=== PATIENT | male | born 1990 ===

== ENCOUNTER 2017-11-22 11:46 | Inpatient (IN) | payer OTHER ==
--- NOTE | 2017-11-22 12:44 | ED PDOC ---
HPI: Abdomen Time Seen by Provider: 11/22/17 12:43 Chief Complaint (Nursing): Abdominal Pain Chief Complaint (Provider): abd pain History Per: Patient Additional Complaint(s): 27-year-old male with no past medical history presents to emergency department with right lower quadrant pain, nausea, vomiting and diarrhea that started 2 days ago. Patient was seen by primary doctor and referred to ED for further evaluation. He rates the abdominal pain as an 8 out of 10 and states that it started in periumbilical region and has now localized to right lower quadrant. Patient is unable to keep down any liquids or solids. PMD: Dr. Knowles Past Medical History Reviewed: Historical Data, Nursing Documentation, Vital Signs Vital Signs: Last Vital Signs Temp 98.0 F 11/22/17 17:13 Pulse 57 L 11/22/17 17:13 Resp 16 11/22/17 17:13 BP 144/85 11/22/17 17:13 Pulse Ox 98 11/22/17 12:44 - Medical History PMH: No Chronic Diseases - Surgical History Surgical History: No Surg Hx - Family History Family History: States: No Known Family Hx - Living Arrangements Living Arrangements: With Family - Social History Current smoker - smoking cessation education provided: No Alcohol: None Drugs: Denies - Allergies Allergies/Adverse Reactions: Allergies Allergy/AdvReac Type Severity Reaction Status Date / Time No Known Allergies Allergy Verified 11/22/17 12:22 Review of Systems ROS Statement: Except As Marked, All Systems Reviewed And Found Negative Constitutional: Negative for: Fever, Chills Cardiovascular: Negative for: Chest Pain Respiratory: Negative for: Cough Gastrointestinal: Positive for: Nausea, Vomiting, Abdominal Pain, Diarrhea. Negative for: Constipation, Melena, Hematochezia, Hematemesis, Rectal Pain Physical Exam - Reviewed Nursing Documentation Reviewed: Yes Vital Signs Reviewed: Yes - Physical Exam Appears: Positive for: Well, Non-toxic, No Acute Distress Skin: Negative for: Rash Eye Exam: Positive for: Normal appearance Cardiovascular/Chest: Positive for: Regular Rate, Rhythm Respiratory: Positive for: Normal Breath Sounds. Negative for: Respiratory Distress Gastrointestinal/Abdominal: Positive for: Tenderness (Moderate tenderness right lower quadrant with positive guarding and positive rebound) Back: Negative for: L CVA Tenderness, R CVA Tenderness Extremity: Positive for: Normal ROM Neurologic/Psych: Positive for: Alert, Oriented - Laboratory Results Result Diagrams: 11/22/17 13:50 11/22/17 13:50 Urine dip results: Negative for: Leukocyte Esterase, Blood, Nitrate, Ketones, Glucose, Bilirubin, Protein - ECG O2 Sat by Pulse Oximetry: 98 Pulse Ox Interpretation: Normal - Other Rad CT abd and pelvis with IV contrast X-Ray: Read By Radiologist X-Ray Interpretation: see below Medical Decision Making Medical Decision Makin27 year old with abd pain Plan: CBC CMP Blood cultures CT abd and pelvis with IV contrast IVF IV reglan IV toradol CT: FINDINGS: LOWER THORAX: Unremarkable. LIVER: Unremarkable. No gross lesion or ductal dilatation. GALLBLADDER AND BILE DUCTS: Unremarkable. PANCREAS: Unremarkable. No gross lesion or ductal dilatation. SPLEEN: Unremarkable. ADRENALS: Unremarkable. No mass. KIDNEYS AND URETERS: Unremarkable. No hydronephrosis. No solid mass. VASCULATURE: Unremarkable. No aortic aneurysm. BOWEL: Unremarkable. No obstruction. No gross mural thickening. APPENDIX: There is a lengthy dilated appendix with mild mural thickening and limited periappendiceal reaction with a probable appendecolith at the tip in the right pelvis inferiorly. A 2nd larger appendecolith is felt to be present at its proximal segment near the cecum likely forming an obstruction. The pattern is compatible with appendicitis without CT sign of rupture at this time. PERITONEUM: Unremarkable. No free fluid. No free air. LYMPH NODES: Unremarkable. No enlarged lymph nodes. BLADDER: Distended but otherwise unremarkable appearing. REPRODUCTIVE: Unremarkable. BONES: No acute fracture. OTHER FINDINGS: None. IMPRESSION: Findings compatible with unruptured appendicitis. Further clinical correlation is recommended. PMD is Dr. Knowles, will admit patient and states to have surgery neighborhood conservation officer see patient. Case d/w surgical pathologist, Dr. Rodgers who discussed case further with surgery neighborhood conservation officer. Patient will be taken to OR this afternoon. IV zosyn ordered. Patient is aware of and agrees with plan. Disposition - Clinical Impression Clinical Impression: Appendicitis - Patient ED Disposition Is Patient to be Admitted: Yes - Disposition Disposition Time: 17:35 Condition: FAIR Forms: [employer] (Hungarian) - Pt Status Changed To: Hospital Disposition Of: Inpatient - Admit Certification Admit to Inpatient:: After my assessment, the patient will require hospitalization for at least two midnights. This is because of the severity of symptoms shown, intensity of services needed, and/or the medical risk in this patient being treated as an outpatient. - POA Present On Arrival: None Results - Lab Results Lab Results: 11/22/17 11/22/17 13:50 13:50 WBC 16.5 H RBC 5.68 Hgb 17.5 Hct 51.4 H MCV 90.4 MCH 30.8 MCHC 34.1 RDW 13.0 Plt Count 231 MPV 10.0 Neut % (Auto) 88.1 H Lymph % (Auto) 5.2 L [place] % (Auto) 6.5 Eos % (Auto) 0.0 Baso % (Auto) 0.2 Neut # (Auto) 14.5 H Lymph # (Auto) 0.9 L [place] # (Auto) 1.1 H Eos # (Auto) 0.0 Baso # (Auto) 0.0 Neutrophils % (Manual) 89 H Lymphocytes % (Manual) 5 L Monocytes % (Manual) 6 Platelet Estimate Normal RBC Morphology Normal Sodium 138 Potassium 4.2 Chloride 97 L Carbon Dioxide 25 Anion Gap 20 BUN 15 Creatinine 1.0 Est GFR ( Amer) > 60 Est GFR (Non-Af Amer) > 60 Random Glucose 140 H Calcium 9.5 Total Bilirubin 2.4 H AST 34 ALT 47 Alkaline Phosphatase 75 Total Protein 8.6 H Albumin 4.9 Globulin 3.7 Albumin/Globulin Ratio 1.3 Lipase 56
[2017-11-22] MEDS ORDERED: Sodium Chloride 0.9% 1,000 ML IV STA (12:53)
[2017-11-22 13:59] LABS: BASO % 0.2 % (0.0-2.0); HEMOGLOBIN 17.5 g/dL (12.0-18.0); LYMPH # 0.9 K/uL (1.0-4.3); LYMPH % 5.2 % (20.0-40.0); MEAN CELL VOLUME 90.4 fl (80.0-94.0); MEAN CORPUSCULAR HEMOGLOBIN 30.8 pg (27.0-31.0); MEAN CORPUSCULAR HGB CONC 34.1 g/dL (33.0-37.0); MONO # 1.1 K/uL (0.0-0.8); MONO % 6.5 % (0.0-10.0); NEUT # 14.5 K/uL (1.8-7.0); NEUT % 88.1 % (50.0-75.0); PLATELET COUNT 231 K/uL (130-400); RBC 5.68 Mil/uL (4.40-5.90); WHITE BLOOD COUNT 16.5 K/uL (4.8-10.8)
[2017-11-22 14:10] LABS: ALB/GLOB RATIO 1.3 (1.0-2.1); ALBUMIN 4.9 g/dL (3.5-5.0); ALT/SGPT 47 U/L (21-72); AST/SGOT 34 U/L (17-59); BLOOD UREA NITROGEN 15 mg/dl (9-20); CALCIUM 9.5 mg/dL (8.4-10.2); GFR AFRICAN-AMERICAN > 60; GFR NON-AFRICAN AMERICAN > 60; LIPASE 56 U/L (23-300)
[2017-11-22] MEDS ORDERED: Lactated Ringer's 1,000 ML IV ONE ×3 (14:20→19:10)
[2017-11-22] MEDS ORDERED: Sodium Chloride 0.9% 100 ML ONE (14:37)
[2017-11-22] MEDS ORDERED: Iohexol 300 100 ML IJ ONE (14:37)
[2017-11-22 15:26] LABS: LYMPHOCYTE 5 % (20-50); MONOCYTE 6 % (0-10); NEUTROPHIL 89 % (42-75); PLATELET ESTIMATE NORMAL (NORMAL); TOTAL CELLS COUNTED 100
--- NOTE | 2017-11-22 15:43 | CT ---
PROCEDURE: CT Abdomen and Pelvis with contrast HISTORY: diffuse abd pain COMPARISON: None. TECHNIQUE: Contrast dose: Omnipaque 300, 95 cc Radiation dose: Total exam DLP = 444.72 mGy-cm. This CT exam was performed using one or more of the following dose reduction techniques: Automated exposure control, adjustment of the mA and/or kV according to patient size, and/or use of iterative reconstruction technique. FINDINGS: LOWER THORAX: Unremarkable. LIVER: Unremarkable. No gross lesion or ductal dilatation. GALLBLADDER AND BILE DUCTS: Unremarkable. PANCREAS: Unremarkable. No gross lesion or ductal dilatation. SPLEEN: Unremarkable. ADRENALS: Unremarkable. No mass. KIDNEYS AND URETERS: Unremarkable. No hydronephrosis. No solid mass. VASCULATURE: Unremarkable. No aortic aneurysm. BOWEL: Unremarkable. No obstruction. No gross mural thickening. APPENDIX: There is a lengthy dilated appendix with mild mural thickening and limited periappendiceal reaction with a probable appendecolith at the tip in the right pelvis inferiorly. A 2nd larger appendecolith is felt to be present at its proximal segment near the cecum likely forming an obstruction. The pattern is compatible with appendicitis without CT sign of rupture at this time. PERITONEUM: Unremarkable. No free fluid. No free air. LYMPH NODES: Unremarkable. No enlarged lymph nodes. BLADDER: Distended but otherwise unremarkable appearing. REPRODUCTIVE: Unremarkable. BONES: No acute fracture. OTHER FINDINGS: None. IMPRESSION: Findings compatible with unruptured appendicitis. Further clinical correlation is recommended. Findings discussed with JAMES Fernandez with written down and read back verification 11/22/2017 3:37 p.m..
[2017-11-22] MEDS ORDERED: Piperacillin/Tazobact 3.375 gm Inj IVPB STA (15:50)
[2017-11-22] MEDS ORDERED: Piperacillin/Tazobact 3.375 gm Inj IVPB ONE (16:31)
[2017-11-22] MEDS: Lactated Ringer's 1,000 ML IV SCH ×2 (16:38→21:49)
[2017-11-22] MEDS ORDERED: Propofol 10 mg/ml Inj (20 ML) ONE ×3 (17:55→19:38)
--- NOTE | 2017-11-22 17:55 | CP.PCM.HP ---
<Angel Grant - Last Filed: 11/22/17 17:51> History of Present Illness - History of Present Illness History of Present Illness: General Surgery H&P CC: abdominal pain HPI: 27M presented to ED with <24hrs abdominal pain that began around 3pm yesterday. He had never had this pain before. Reports it as a sharp pain that is diffuse, but more painful in the lower abdomen. +N/V/D, cold sweats. Denies Dysuria, hematuria, hematochezia, and hematemesis. PMH: denies PSH: Skull plating, Finger surgery SH: Occasional EtOH, No tobacco or drug use. FH: Noncontributory All: NKDA Meds: Denies Present on Admission - Present on Admission Any Indicators Present on Admission: No Review of Systems - Review of Systems All systems: reviewed and no additional remarkable complaints except (as per HPI ) Past Patient History - Past Medical History & Family History Past Medical History?: No - Past Social History Alcohol: None Drugs: Denies - CARDIAC Hx Cardiac Disorders: No - PULMONARY Hx Respiratory Disorders: No - NEUROLOGICAL Hx Neurological Disorder: No - ENDOCRINE/METABOLIC Hx Endocrine Disorders: No - HEMATOLOGICAL/ONCOLOGICAL Hx Blood Disorders: No - INTEGUMENTARY Hx Dermatological Problems: No - MUSCULOSKELETAL/RHEUMATOLOGICAL Hx Musculoskeletal Disorders: No - GASTROINTESTINAL Hx Gastrointestinal Disorders: No - GENITOURINARY/GYNECOLOGICAL Hx Genitourinary Disorders: No - PSYCHIATRIC Hx Psychophysiologic Disorder: No - SURGICAL HISTORY Hx Surgeries: No Meds Allergies/Adverse Reactions: Allergies Allergy/AdvReac Type Severity Reaction Status Date / Time No Known Allergies Allergy Verified 11/22/17 12:22 Physical Exam - Constitutional Appears: Non-toxic, No Acute Distress - Head Exam Head Exam: ATRAUMATIC, NORMOCEPHALIC - Eye Exam Eye Exam: EOMI, PERRL - ENT Exam ENT Exam: Mucous Membranes Dry Additional comments: trachea midline - Neck Exam Neck exam: Positive for: Full Rom - Respiratory Exam Respiratory Exam: NORMAL BREATHING PATTERN. absent: Respiratory Distress - Cardiovascular Exam Cardiovascular Exam: RRR, +S1, +S2 - GI/Abdominal Exam GI & Abdominal Exam: Guarding (mild), Hernia (umbilical), Soft, Tenderness ( diffusely, but worst suprapubically). absent: Distended, Firm, Rebound, Rigid - Rectal Exam Rectal Exam: Deferred - Exam Additional comments: no inguinal hernias - Extremities Exam Extremities exam: Positive for: pedal pulses present. Negative for: calf tenderness, pedal edema - Back Exam Back exam: absent: CVA tenderness (L), CVA tenderness (R) - Neurological Exam Neurological exam: Alert, Oriented x3 - Psychiatric Exam Psychiatric exam: Normal Affect, Normal Mood - Skin Skin Exam: Dry, Warm Results - Vital Signs Recent Vital Signs: Last Vital Signs Temp 98.0 F 11/22/17 17:13 Pulse 57 L 11/22/17 17:13 Resp 16 11/22/17 17:13 BP 144/85 11/22/17 17:13 Pulse Ox 98 11/22/17 17:35 - Labs Result Diagrams: 11/22/17 13:50 11/22/17 13:50 Labs: Laboratory Results - last 24 hr 11/22/17 11/22/17 13:50 13:50 WBC 16.5 H RBC 5.68 Hgb 17.5 Hct 51.4 H MCV 90.4 MCH 30.8 MCHC 34.1 RDW 13.0 Plt Count 231 MPV 10.0 Neut % (Auto) 88.1 H Lymph % (Auto) 5.2 L [place] % (Auto) 6.5 Eos % (Auto) 0.0 Baso % (Auto) 0.2 Neut # (Auto) 14.5 H Lymph # (Auto) 0.9 L [place] # (Auto) 1.1 H Eos # (Auto) 0.0 Baso # (Auto) 0.0 Neutrophils % (Manual) 89 H Lymphocytes % (Manual) 5 L Monocytes % (Manual) 6 Platelet Estimate Normal RBC Morphology Normal Sodium 138 Potassium 4.2 Chloride 97 L Carbon Dioxide 25 Anion Gap 20 BUN 15 Creatinine 1.0 Est GFR ( Amer) > 60 Est GFR (Non-Af Amer) > 60 Random Glucose 140 H Calcium 9.5 Total Bilirubin 2.4 H AST 34 ALT 47 Alkaline Phosphatase 75 Total Protein 8.6 H Albumin 4.9 Globulin 3.7 Albumin/Globulin Ratio 1.3 Lipase 56 - Imaging and Cardiology CT scan - abdomen Status: Image reviewed by me, Report reviewed by me Assessment & Plan - Assessment and Plan (Free Text) Assessment: 27M with acute appendicitis with appendicolith Plan: NPO IVF Zosyn OR tonight for lap appendectomy Analgesia antiemetic Anti pyretic D/W Dr. Christiano Grant PGY4 <Carlin Alvarado - Last Filed: 11/22/17 18:12> Results - Vital Signs Recent Vital Signs: Last Vital Signs Temp 98.0 F 11/22/17 17:13 Pulse 57 L 11/22/17 17:13 Resp 16 11/22/17 17:13 BP 144/85 11/22/17 17:13 Pulse Ox 98 11/22/17 17:35 - Labs Result Diagrams: 11/22/17 13:50 11/22/17 13:50 Labs: Laboratory Results - last 24 hr 11/22/17 11/22/17 13:50 13:50 WBC 16.5 H RBC 5.68 Hgb 17.5 Hct 51.4 H MCV 90.4 MCH 30.8 MCHC 34.1 RDW 13.0 Plt Count 231 MPV 10.0 Neut % (Auto) 88.1 H Lymph % (Auto) 5.2 L [place] % (Auto) 6.5 Eos % (Auto) 0.0 Baso % (Auto) 0.2 Neut # (Auto) 14.5 H Lymph # (Auto) 0.9 L [place] # (Auto) 1.1 H Eos # (Auto) 0.0 Baso # (Auto) 0.0 Neutrophils % (Manual) 89 H Lymphocytes % (Manual) 5 L Monocytes % (Manual) 6 Platelet Estimate Normal RBC Morphology Normal Sodium 138 Potassium 4.2 Chloride 97 L Carbon Dioxide 25 Anion Gap 20 BUN 15 Creatinine 1.0 Est GFR ( Amer) > 60 Est GFR (Non-Af Amer) > 60 Random Glucose 140 H Calcium 9.5 Total Bilirubin 2.4 H AST 34 ALT 47 Alkaline Phosphatase 75 Total Protein 8.6 H Albumin 4.9 Globulin 3.7 Albumin/Globulin Ratio 1.3 Lipase 56 Assessment & Plan - Assessment and Plan (Free Text) Plan: I Personally saw and examined the patient at bedside with the resident and agree with the above assessment and plan. 27 male with about 24 hours lower abdominal pain, nausea/vomiting, and diarrhea. No previous abdominal surgery or relevant medical history. I personally reviewed the images and report from CT AP performed early - large, inflamed and dilated appendix with accompanying appendicolith. No evidence of perforation/abscess. Plan for laparoscopic appendectomy under GETA. Will admit to observation post-operatively. Consent was obtained at the bedside with patient.
[2017-11-22] MEDS ORDERED: Rocuronium 10 mg/ml (5 ml) ONE ×2 (17:56→19:19)
[2017-11-22] MEDS ORDERED: Midazolam 2 MG/2 ML VIAL ONE (17:56)
[2017-11-22] MEDS ORDERED: Succinylcholine 200 mg/10 ml Inj IV ONE (17:56)
[2017-11-22] MEDS ORDERED: Lidocaine 2% Inj (20ml) ONE (18:08)
[2017-11-22] MEDS ORDERED: Bupivacaine 0.5% Inj(30mL) ONE (18:08)
[2017-11-22] MEDS ORDERED: Bupivacaine 0.5% 50 ML IJ ONE (18:42)
[2017-11-22] MEDS ORDERED: Dexamethasone 4 mg/1 ml ONE (18:50)
[2017-11-22] MEDS ORDERED: Desflurane Inhalation Anesthetic Liq (240 ml) ONE (18:58)
[2017-11-22] MEDS ORDERED: Neostigmine 1:1000 (1 mg/ml) Inj ONE (19:03)
--- NOTE | 2017-11-22 20:23 | PCM.SURG1 ---
Surgeon's Initial Post Op Note - Surgeon's Notes Surgeon: Christiano Legal Records Clerk: PGY4 Type of Anesthesia: General Endo Pre-Operative Diagnosis: Acute Appendicitis Operative Findings: Inflamed, non-perforated appendix Post-Operative Diagnosis: Acute Appendicitis Operation Performed: Laparoscopic appendectomy Specimen/Specimens Removed: appendix Estimated Blood Loss: EBL {In ML}: 10 Blood Products Given: N/A Drains Used: No Drains Post-Op Condition: Good Date of Surgery/Procedure: 11/22/17 Time of Surgery/Procedure: 18:30
[2017-11-22] MEDS: Piperacillin/Tazobact 3.375 GM in Sodium Chloride 0.9% 100 ML IVPB SCH (21:42)
[2017-11-23] MEDS: Lactated Ringer's 1,000 ML IV SCH (01:38)
[2017-11-23] MEDS ORDERED: Lactated Ringer's 1,000 ML IV SCH (06:00)
[2017-11-23 06:45] LABS: HEMOGLOBIN 15.5 g/dL (12.0-18.0); LYMPH # 1.1 K/uL (1.0-4.3); LYMPH % 7.2 % (20.0-40.0); MEAN CELL VOLUME 90.3 fl (80.0-94.0); MEAN CORPUSCULAR HEMOGLOBIN 31.7 pg (27.0-31.0); MEAN CORPUSCULAR HGB CONC 35.1 g/dL (33.0-37.0); MEAN PLATELET VOLUME 10.1 fl (7.2-11.7); MONO % 6.1 % (0.0-10.0); NEUT # 13.7 K/uL (1.8-7.0); NEUT % 86.7 % (50.0-75.0); RBC 4.88 Mil/uL (4.40-5.90); WHITE BLOOD COUNT 15.9 K/uL (4.8-10.8)
--- NOTE | 2017-11-23 07:39 | CP.PCM.DIS ---
<Reginald Osullivan - Last Filed: 11/23/17 08:20> Provider - Provider Date of Admission: 11/22/17 15:49 Attending physician: Carlin Alvarado MD Primary care physician: No Family Provider Consults: Dr. Knowles Time Spent in preparation of Discharge (in minutes): 15 Diagnosis - Discharge Diagnosis (1) Appendicitis Status: Acute Comment: 27M admitted to [facility] on 11/22/17 for acute appendicitis. Patient underwent laproscopic appendectomy on 11/22/[address] Alvarado without incident Hospital Course - Lab Results Lab Results: Most Recent Lab Values WBC 15.9 K/uL (4.8-10.8) H 11/23/17 06:20 RBC 4.88 Mil/uL (4.40-5.90) 11/23/17 06:20 Hgb 15.5 g/dL (12.0-18.0) D 11/23/17 06:20 Hct 44.1 % (35.0-51.0) 11/23/17 06:20 MCV 90.3 fl (80.0-94.0) 11/23/17 06:20 MCH 31.7 pg (27.0-31.0) H 11/23/17 06:20 MCHC 35.1 g/dL (33.0-37.0) 11/23/17 06:20 RDW 13.0 % (11.5-14.5) 11/23/17 06:20 Plt Count 183 K/uL (130-400) 11/23/17 06:20 MPV 10.1 fl (7.2-11.7) 11/23/17 06:20 Neut % (Auto) 86.7 % (50.0-75.0) H 11/23/17 06:20 Lymph % (Auto) 7.2 % (20.0-40.0) L 11/23/17 06:20 [place] % (Auto) 6.1 % (0.0-10.0) 11/23/17 06:20 Eos % (Auto) 0.0 % (0.0-4.0) 11/23/17 06:20 Baso % (Auto) 0.0 % (0.0-2.0) 11/23/17 06:20 Neut # (Auto) 13.7 K/uL (1.8-7.0) H 11/23/17 06:20 Lymph # (Auto) 1.1 K/uL (1.0-4.3) 11/23/17 06:20 [place] # (Auto) 1.0 K/uL (0.0-0.8) H 11/23/17 06:20 Eos # (Auto) 0.0 K/uL (0.0-0.7) 11/23/17 06:20 Baso # (Auto) 0.0 K/uL (0.0-0.2) 11/23/17 06:20 Neutrophils % (Manual) 89 % (42-75) H 11/22/17 13:50 Lymphocytes % (Manual) 5 % (20-50) L 11/22/17 13:50 Monocytes % (Manual) 6 % (0-10) 11/22/17 13:50 Platelet Estimate Normal (NORMAL) 11/22/17 13:50 RBC Morphology Normal (NORMAL) 11/22/17 13:50 Sodium 138 mmol/l (132-148) 11/22/17 13:50 Potassium 4.2 MMOL/L (3.6-5.0) 11/22/17 13:50 Chloride 97 mmol/L (98-107) L 11/22/17 13:50 Carbon Dioxide 25 mmol/L (22-30) 11/22/17 13:50 Anion Gap 20 (10-20) 11/22/17 13:50 BUN 15 mg/dl (9-20) 11/22/17 13:50 Creatinine 1.0 mg/dl (0.8-1.5) 11/22/17 13:50 Est GFR ( Amer) > 60 11/22/17 13:50 Est GFR (Non-Af Amer) > 60 11/22/17 13:50 Random Glucose 140 mg/dL (75-110) H 11/22/17 13:50 Calcium 9.5 mg/dL (8.4-10.2) 11/22/17 13:50 Total Bilirubin 2.4 mg/dl (0.2-1.3) H 11/22/17 13:50 AST 34 U/L (17-59) 11/22/17 13:50 ALT 47 U/L (21-72) 11/22/17 13:50 Alkaline Phosphatase 75 U/L (38-126) 11/22/17 13:50 Total Protein 8.6 G/DL (6.3-8.2) H 11/22/17 13:50 Albumin 4.9 g/dL (3.5-5.0) 11/22/17 13:50 Globulin 3.7 gm/dL (2.2-3.9) 11/22/17 13:50 Albumin/Globulin Ratio 1.3 (1.0-2.1) 11/22/17 13:50 Lipase 56 U/L (23-300) 11/22/17 13:50 - Hospital Course Hospital Course: 29M admitted to hospital on 11/22/17 complaining of acute severe RLQ abdominal pain. Abdomen/Pelvis CT shown to be positive for unruptured appendicitis. Patient brought to OR for laproscopic appendectomy with Dr. Alvarado on 11/22/17 which was performed without incident. Patient seen and examined this morning; found to be stable and improved. Is to be DC today with prescription for Percocet 5/325 and will follow up with Dr. Alvarado as an outpatient. - Date & Time of H&P Date of H&P: 11/23/17 Time of H&P: 07:43 Discharge Exam - Head Exam Head Exam: ATRAUMATIC, NORMOCEPHALIC - Respiratory Exam Respiratory Exam: NORMAL BREATHING PATTERN, UNREMARKABLE. absent: Respiratory Distress - GI/Abdominal Exam GI & Abdominal Exam: Soft. absent: Distended, Firm, Guarding, Tenderness - Neurological Exam Neurological exam: Alert, Oriented x3 - Psychiatric Exam Psychiatric exam: Normal Affect, Normal Mood Discharge Plan - Follow Up Plan Condition: FAIR Disposition: HOME/ ROUTINE Instructions: Appendicitis, Adult (DC), Hydrocodone and Acetaminophen, Ibuprofen, Appendectomy, Laparoscopic Surgery (DC) Additional Instructions: follow up at Dr. Alvarado's office in 1-2 weeks. No heavy lifting for 1 month OK to take shower Referrals: Carlin Alvarado MD [Staff Provider] - <Carlin Alvarado - Last Filed: 11/23/17 09:51> Provider - Provider Date of Admission: 11/22/17 15:49 Attending physician: Carlin Alvarado MD Hospital Course - Lab Results Lab Results: Most Recent Lab Values WBC 15.9 K/uL (4.8-10.8) H 11/23/17 06:20 RBC 4.88 Mil/uL (4.40-5.90) 11/23/17 06:20 Hgb 15.5 g/dL (12.0-18.0) D 11/23/17 06:20 Hct 44.1 % (35.0-51.0) 11/23/17 06:20 MCV 90.3 fl (80.0-94.0) 11/23/17 06:20 MCH 31.7 pg (27.0-31.0) H 11/23/17 06:20 MCHC 35.1 g/dL (33.0-37.0) 11/23/17 06:20 RDW 13.0 % (11.5-14.5) 11/23/17 06:20 Plt Count 183 K/uL (130-400) 11/23/17 06:20 MPV 10.1 fl (7.2-11.7) 11/23/17 06:20 Neut % (Auto) 86.7 % (50.0-75.0) H 11/23/17 06:20 Lymph % (Auto) 7.2 % (20.0-40.0) L 11/23/17 06:20 [place] % (Auto) 6.1 % (0.0-10.0) 11/23/17 06:20 Eos % (Auto) 0.0 % (0.0-4.0) 11/23/17 06:20 Baso % (Auto) 0.0 % (0.0-2.0) 11/23/17 06:20 Neut # (Auto) 13.7 K/uL (1.8-7.0) H 11/23/17 06:20 Lymph # (Auto) 1.1 K/uL (1.0-4.3) 11/23/17 06:20 [place] # (Auto) 1.0 K/uL (0.0-0.8) H 11/23/17 06:20 Eos # (Auto) 0.0 K/uL (0.0-0.7) 11/23/17 06:20 Baso # (Auto) 0.0 K/uL (0.0-0.2) 11/23/17 06:20 Neutrophils % (Manual) 89 % (42-75) H 11/22/17 13:50 Lymphocytes % (Manual) 5 % (20-50) L 11/22/17 13:50 Monocytes % (Manual) 6 % (0-10) 11/22/17 13:50 Platelet Estimate Normal (NORMAL) 11/22/17 13:50 RBC Morphology Normal (NORMAL) 11/22/17 13:50 Sodium 138 mmol/l (132-148) 11/22/17 13:50 Potassium 4.2 MMOL/L (3.6-5.0) 11/22/17 13:50 Chloride 97 mmol/L (98-107) L 11/22/17 13:50 Carbon Dioxide 25 mmol/L (22-30) 11/22/17 13:50 Anion Gap 20 (10-20) 11/22/17 13:50 BUN 15 mg/dl (9-20) 11/22/17 13:50 Creatinine 1.0 mg/dl (0.8-1.5) 11/22/17 13:50 Est GFR ( Amer) > 60 11/22/17 13:50 Est GFR (Non-Af Amer) > 60 11/22/17 13:50 Random Glucose 140 mg/dL (75-110) H 11/22/17 13:50 Calcium 9.5 mg/dL (8.4-10.2) 11/22/17 13:50 Total Bilirubin 2.4 mg/dl (0.2-1.3) H 11/22/17 13:50 AST 34 U/L (17-59) 11/22/17 13:50 ALT 47 U/L (21-72) 11/22/17 13:50 Alkaline Phosphatase 75 U/L (38-126) 11/22/17 13:50 Total Protein 8.6 G/DL (6.3-8.2) H 11/22/17 13:50 Albumin 4.9 g/dL (3.5-5.0) 11/22/17 13:50 Globulin 3.7 gm/dL (2.2-3.9) 11/22/17 13:50 Albumin/Globulin Ratio 1.3 (1.0-2.1) 11/22/17 13:50 Lipase 56 U/L (23-300) 11/22/17 13:50 - Hospital Course Hospital Course: I personally saw and examined patient this morning at bedside with the house staff and agree with the above. Patient feels much better this am. No nausea vomiting. Tolerating diet as tolerated. Passed flatus and voiding freely. Abd incisions clean dry and intact. Patient to be discharged this am and follow up in clinic 2-3 weeks.
[2017-11-23 08:00] VITALS: BP 112/72; PULSE 78; RESP 18; TEMP 97.9; O2SAT 98
[2017-11-23] MEDS: Piperacillin/Tazobact 3.375 GM in Sodium Chloride 0.9% 100 ML IVPB SCH (08:29)
--- NOTE | 2017-11-24 08:08 | OP ---
PROCEDURE DATE: 11/22/2017 SURGEON: Carlin Alvarado MD GUARD IMMIGRATION SURGEON: Dr. Angel Grant, PGY-4 resident. PRE-OP DIAGNOSIS: Acute Appendicitis POST-OP DIAGNOSIS: Same PROCEDURE: Laparoscopic Appendectomy OPERATIVE FINDINGS: Inflamed, non-perforated appendix SPECIMEN: Appendix ESTIMATED BLOOD LOSS: EBL (in ML): 10 DRAINS USED: No Drains INDICATION FOR SURGERY: This is a 27-year-old male who presented to [facility] Emergency Department, complaining of about 24-hours of vague abdominal pain which localized then further to his lower abdomen. He had several episodes of nausea, vomiting, and some diarrhea. He had a white count of 16 in ED. He also had a CAT scan which confirmed and showed a inflamed distended appendix with periappendiceal fat-stranding as well as associated appendicolith. There was no evidence of perforation, phlegmon or abscess. The patient was given a dose of antibiotics and taken to the operating room for the following procedure. DETAILS OF THE OPERATION: The patient was brought to the operating room and placed supine on a bed. Sequential compression stockings were placed for DVT prophylaxis. A Oshea catheter was placed and abdominal hair was removed using buzzers. Upper and lower woollen blanket was placed to maintain body temperature. Antibiotics that were started Zosyn 3 g down in the emergency room was also continued with infusion throughout the case. Following endotracheal intubation and induction, we prepped and draped the abdomen in standard sterile fashion and time-out was performed. All trocar sites were pre-anesthetized with 0.5% Marcaine. I noted a small umbilical hernia examining the patient in the preoperative area and so I elected to use the side of this hernia as our entry site for camera placement as well as to really to repair it during the same procedure. After local anesthesia was injected, general anesthesia around the umbilicus, a 11-blade was used to make a vertical incision through the umbilicus to skin and blunt dissection was continued to the subcutaneous tissue until the umbilical defect was identified. The umbilical defect was then grasped with a Fidel clamps, and incised sharply both ways. We then placed a 12-mm trocar under direct vision. After the abdomen was insufflated to 15 mmHg, a 5-mm 30 degree laparoscope was introduced. The abdomen was examined, there were no signs of injury from our initial entry. Two additional 5-mm trocars were then placed in the left lower quadrant and suprapubic region. All trocars were placed under direct vision. After safe entry and port placement, we surveyed the abdomen cavity, the patient was turned into Trendelenburg position with a right side up. We then mobilized loops of small bowel out of the pelvis. There were no free fluid or any murky looking fluid. There were however some dilated small bowel loops adjacent to where the inflamed appendix was. We began by sweeping the small bowel out of the pelvis, and then identifying the tip of the inflamed appendix, we immediately encountered some inflammatory changes identifying the base of the appendix and cecum which is identified with convergence of the taenia. Using a combination of blunt and sharp dissection with a LigaSure device, we then mobilized the lateral of the abdominal wall from the proximal part of the base of the appendix and cecum for total distance of about 3-4 cm. We then made sure to avoid any injury to retroperitoneal structures. A LigaSure device was then used to create a mesenteric window at the base of the appendix and the mesoappendix at the base after safely creating this window. At this point, a 5-mm camera was introduced to the left lower quadrant port. A 45-mm blue-load Endo stapling device was used to divide the appendix at its base being sure to come distal most portion of the cecum. The staple line was examined and was intact, there was no bleeding at the staple line of the cecum. We then turned our attention to the mesoappendix, i wanted to use a white-load Endo GI stapler to transect the mesoappendix. This was accomplished without any incident; however, upon further examination, there was some minimal bleeding at the staple line, I then elected to place two 10-mm clips at the staple line reassessing and there was adequate hemostasis. The specimen was then placed in to an EndoCatch bag and removed from the 12-mm trocar at the umbilical site. The trocar was then reinserted and we once again reinspected the staple line. The staple lines were inspected and appeared completely hemostatic. I then performed one final inspection of the abdominal cavity, there were no other fluid or any other abdominal findings. I placed a small piece of omental over the area which we dissected. The trocars were removed under direct vision and camera removed. The abdomen was desufflated. We then turned our attention to dressing the umbilical defect which actually was the site of 12-mm port. This was closed with #2-0 Vicryl sutures placed in a [id number] fashion. The skin was then closed with 4-0 Monocryl and Dermabond. The patient was extubated in the operating room and taken to the recovery in stable condition. The patient tolerated the procedure without any complications. All lap and instrument counts were correct prior to leaving the operating room. I was present during the entire case. Carlin Alvarado MD
== END 2017-11-23 10:33 | disposition home or self-care (01) | DRG 883 ==
LOC: H.ER 11:46 → H.ERHOLD 15:49 → H.MEDSURG1 21:32
PROVIDERS: ADMIT Surgery; ATTEND Surgery
PROC: 0DTJ4ZZ Resection of Appendix, Percutaneous Endoscopic Approach (ICD-10-PCS; principal; 2017-11-22 18:00)
DX: K35.80 Unspecified acute appendicitis (principal); K38.1 Appendicular concretions

== ENCOUNTER 2018-02-22 07:37 | Emergency (ER) | payer SELFPAY ==
[2018-02-22 07:58] VITALS: O2SAT 99
[2018-02-22] MEDS ORDERED: Sodium Chloride 0.9% 1,000 ML IV STA ×2 (08:15→11:00)
[2018-02-22] MEDS ORDERED: Dexamethasone 10 MG in Sodium Chloride 0.9% 50 ML IVPB STA (08:16)
--- NOTE | 2018-02-22 08:25 | ED PDOC ---
HPI: CCC, URI, Sore Throat Time Seen by Provider: 02/22/18 08:01 Chief Complaint (Nursing): ENT Problem Chief Complaint (Provider): ENT Problem History Per: Patient History/Exam Limitations: no limitations Onset/Duration Of Symptoms: Days (7) Additional Complaint(s): 27 years old male presents to the ED for evaluation of sore throat associated with painful swallowing onset one week. Patient reports experiencing subjective fever. He denies shortness of breath. PMD: non provided Past Medical History Reviewed: Historical Data, Nursing Documentation, Vital Signs Vital Signs: Last Vital Signs Temp 98.2 F 02/22/18 07:57 Pulse 86 02/22/18 07:57 Resp 17 02/22/18 07:57 BP 111/73 02/22/18 07:57 Pulse Ox 99 02/22/18 10:50 - Medical History PMH: No Chronic Diseases - Surgical History Surgical History: Appendectomy - Family History Family History: States: Unknown Family Hx - Social History Current smoker - smoking cessation education provided: No Alcohol: None Drugs: Denies - Home Medications Home Medications: Ambulatory Orders Medication Instructions Recorded Naproxen [Naprosyn] 500 mg PO BID PRN #15 tablet 02/22/18 Sulfamethoxazole/Trimethoprim 1 each PO BID #10 tablet 02/22/18 [Bactrim Ds Tablet] oxyCODONE/Acetaminophen [Percocet 1 tab PO Q6H PRN #15 tab 02/22/18 5/325 mg Tab] - Allergies Allergies/Adverse Reactions: Allergies Allergy/AdvReac Type Severity Reaction Status Date / Time No Known Allergies Allergy Verified 11/22/17 12:22 Review of Systems ROS Statement: Except As Marked, All Systems Reviewed And Found Negative Constitutional: Positive for: Fever (Subjective) ENT: Positive for: Throat Pain ( with painful swallowing) Respiratory: Negative for: Shortness of Breath Physical Exam - Reviewed Nursing Documentation Reviewed: Yes Vital Signs Reviewed: Yes - Physical Exam Appears: Positive for: Non-toxic, In Acute Distress (mild painful) ENT: Positive for: Tonsillar Swelling (Right). Negative for: Other (Drool) Cardiovascular/Chest: Positive for: Regular Rate, Rhythm. Negative for: Murmur Respiratory: Positive for: Normal Breath Sounds. Negative for: Respiratory Distress Neurologic/Psych: Positive for: Alert, Oriented (x3) - Laboratory Results Result Diagrams: 02/22/18 08:00 02/22/18 08:00 - ECG O2 Sat by Pulse Oximetry: 99 (RA) Pulse Ox Interpretation: Normal Medical Decision Making Medical Decision Making: Time: 811 Initial Impression: pharyngitis, peritonsillar abscess Initial Plan: --CT Neck Soft Tissue --CMP --CBC --PTT --PT --Morphine 2 mg IV --Decadron Inj 10 mg --NaCl 1,000 ml IV --Blood Culture --Throat Culture --Rapid Strep 1021 CT Neck Soft Tissue FINDINGS: NASOPHARYNX: Unremarkable. SUPRAHYOID NECK: There is enlarged with the right tonsillar pillar with a large lucency identified at its core measuring 3.0 x 1.7 cm displacing the uvula and or pharyngeal airway leftward, most compatible with a peritonsillar abscess. Neoplasm on likely. The left tonsillar pillar is unremarkable with the oral cavity grossly nonfocal. There is mild encroachment of edema into lower right oropharynx. With the right vallecula mildly and narrowed. No emphysematous soft tissue changes are identified. Mild right submandibular/jugulodigastric lymphadenopathy is appreciated including a 2.0 x 1.4 cm enlarged lymph node bridging the right submandibular and jugular digastric spaces. Borderline left jugular digastric lymphadenopathy. INFRAHYOID NECK: Unremarkable larynx, hypopharynx, and supraglottic space. Vocal cords intact. GLANDS: Parotid and submandibular glands unremarkable. Normal size thyroid gland, without nodule. LYMPH NODES: See Suprahyoid neck section above. CERVICAL SPINE: No fracture or destructive bony lesion is identified, however, there is a mild reversal of cervical curvature. VASCULAR STRUCTURES: Unremarkable. OTHER FINDINGS: None. IMPRESSION: A 3.0 x 1.7 cm right peritonsillar abscess is identified displacing the uvula and oropharyngeal airway leftward, with mild narrowing. Mild right neck lymphadenopathy is appreciated as discussed above. Findings discussed with Dr. Vann with written down and read back verification 02/22/2018 10:19 a.m.. Abscess I&D by Dr. Post. Recommends discharge home with Bactrim. ----- Scribe Attestation: Documented by Nellie Ewing, acting as a scribe for Dianne Vann MD. Provider Scribe Attestation: All medical record entries made by the Scribe were at my direction and personally dictated by me. I have reviewed the chart and agree that the record accurately reflects my personal performance of the history, physical exam, medical decision making, and the department course for this patient. I have also personally directed, reviewed, and agree with the discharge instructions and disposition. Disposition - Clinical Impression Clinical Impression: Peritonsillar abscess - Patient ED Disposition Is Patient to be Admitted: No - Disposition Referrals: Sukhjinder Post MD [Staff Provider] - Disposition: Routine/Home Disposition Time: 13:32 Condition: IMPROVED Prescriptions: Naproxen [Naprosyn] 500 mg PO BID PRN #15 tablet PRN Reason: Pain, Moderate (4-7) oxyCODONE/Acetaminophen [Percocet 5/325 mg Tab] 1 tab PO Q6H PRN #15 tab PRN Reason: Pain, Severe (8-10) Sulfamethoxazole/Trimethoprim [Bactrim Ds Tablet] 1 each PO BID #10 tablet Instructions: Peritonsillar Abscess, Adult Forms: [facility] ([place])
[2018-02-22 09:10] LABS: BASO % 0.4 % (0.0-2.0); EOS # 0.2 K/uL (0.0-0.7); EOS % 1.4 % (0.0-4.0); HEMOGLOBIN 15.5 g/dL (12.0-18.0); LYMPH # 0.7 K/uL (1.0-4.3); MEAN CELL VOLUME 91.1 fl (80.0-94.0); MEAN CORPUSCULAR HEMOGLOBIN 31.3 pg (27.0-31.0); MEAN CORPUSCULAR HGB CONC 34.4 g/dL (33.0-37.0); MONO # 1.1 K/uL (0.0-0.8); MONO % 9.3 % (0.0-10.0); NEUT # 9.8 K/uL (1.8-7.0); NEUT % 82.9 % (50.0-75.0); PLATELET COUNT 223 K/uL (130-400); RBC 4.95 Mil/uL (4.40-5.90); RED CELL DISTRIBUTION WIDTH 13.2 % (11.5-14.5); WHITE BLOOD COUNT 11.8 K/uL (4.8-10.8)
[2018-02-22 09:14] LABS: INR 1.2; PROTHROMBIN TIME 13.7 Seconds (9.8-13.1)
[2018-02-22 09:17] LABS: PARTIAL THROMBOPLASTIN TIME 34.6 Seconds (25.6-37.1)
[2018-02-22] MEDS ORDERED: Iohexol 300 100 ML IJ ONE (09:27)
[2018-02-22] MEDS ORDERED: Sodium Chloride 0.9% 50 ML IV ONE (09:28)
[2018-02-22 09:29] LABS: ALB/GLOB RATIO 1.2 (1.0-2.1); ALBUMIN 4.5 g/dL (3.5-5.0); ALT/SGPT 22 U/L (21-72); AST/SGOT 28 U/L (17-59); BLOOD UREA NITROGEN 13 mg/dl (9-20); CALCIUM 9.4 mg/dL (8.4-10.2); GFR AFRICAN-AMERICAN > 60; GFR NON-AFRICAN AMERICAN > 60
--- NOTE | 2018-02-22 10:23 | CT ---
Date of service: 02/22/2018 PROCEDURE: CT NECK WITH CONTRAST HISTORY: R tonsillar edema, [place] MAGISTRATE COMPARISON: None available. TECHNIQUE: CT of the neck with intravenous contrast. Coronal and sagittal reformats generated. Intravenous contrast dose: Omnipaque 300, 95 cc Radiation dose: DLP 266.37 mGy-cm This CT exam was performed using one or more of the following dose reduction techniques: Automated exposure control, adjustment of the mA and/or kV according to patient size, and/or use of iterative reconstruction technique. FINDINGS: NASOPHARYNX: Unremarkable. SUPRAHYOID NECK: There is enlarged with the right tonsillar pillar with a large lucency identified at its core measuring 3.0 x 1.7 cm displacing the uvula and or pharyngeal airway leftward, most compatible with a peritonsillar abscess. Neoplasm on likely. The left tonsillar pillar is unremarkable with the oral cavity grossly nonfocal. There is mild encroachment of edema into lower right oropharynx. With the right vallecula mildly and narrowed. No emphysematous soft tissue changes are identified. Mild right submandibular/jugulodigastric lymphadenopathy is appreciated including a 2.0 x 1.4 cm enlarged lymph node bridging the right submandibular and jugular digastric spaces. Borderline left jugular digastric lymphadenopathy. INFRAHYOID NECK: Unremarkable larynx, hypopharynx, and supraglottic space. Vocal cords intact. GLANDS: Parotid and submandibular glands unremarkable. Normal size thyroid gland, without nodule. LYMPH NODES: See Suprahyoid neck section above. CERVICAL SPINE: No fracture or destructive bony lesion is identified, however, there is a mild reversal of cervical curvature. VASCULAR STRUCTURES: Unremarkable. OTHER FINDINGS: None. IMPRESSION: A 3.0 x 1.7 cm right peritonsillar abscess is identified displacing the uvula and oropharyngeal airway leftward, with mild narrowing. Mild right neck lymphadenopathy is appreciated as discussed above. Findings discussed with Dr. Vann with written down and read back verification 02/22/2018 10:19 a.m..
[2018-02-22 10:42] LABS: BANDS 5 % (0-2); LYMPHOCYTE 8 % (20-50); MONOCYTE 10 % (0-10); NEUTROPHIL 77 % (42-75); PLATELET ESTIMATE NORMAL (NORMAL); TOTAL CELLS COUNTED 100
[2018-02-22] MEDS ORDERED: Lidocaine 1% w Epi 1:100,000 Inj ONE (11:09)
[2018-02-22 19:31] VITALS: BP 122/76; PULSE 78; RESP 18; TEMP 98
--- NOTE | 2018-02-23 00:25 | OP ---
Copied To: Sukhjinder Post MD Attending MD: Sukhjinder Post MD PROCEDURE DATE: 02/22/2018 PREOPERATIVE DIAGNOSIS: Right peritonsillar abscess. POSTOPERATIVE DIAGNOSIS: Right peritonsillar abscess. PROCEDURE: Incision and drainage of right peritonsillar abscess. SIGNIFICANT FINDINGS: Right peritonsillar abscess. DESCRIPTION OF PROCEDURE: Patient was placed in seated position. The right peritonsillar area was injected with lidocaine with epinephrine. An incision was made in the right peritonsillar area using a #11 blade. Blunt dissection was done. Pus was noted to be coming out. Loculations were broken with a clamp. Bleeding was controlled with time. Patient tolerated the procedure well. Sukhjinder Post MD
== END 2018-02-22 13:30 | disposition home or self-care (01) ==
LOC: H.ER 07:37
DX: J36 Peritonsillar abscess (principal)
CPT/HCPCS: 42700; 70491; 80053; 85025; 85610; 85730; 87040; 87070; 87430; 99284; J0295; J1100; J2270; J7030; Q9967

== ENCOUNTER 2018-07-07 21:28 | Emergency (ER) | payer SELFPAY ==
[2018-07-07] MEDS ORDERED: Bacitracin 500 Units/gm Oint Foilpak UD TOP STA (22:00)
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
[2018-07-07] MEDS ORDERED: Sodium Chloride 0.9% 1,000 ML IV ONE (22:47)
[2018-07-07 23:06] LABS: BASO # 0.1 K/uL (0.0-0.2); BASO % 0.5 % (0.0-2.0); EOS % 0.2 % (0.0-4.0); HEMOGLOBIN 16.5 g/dL (12.0-18.0); LYMPH # 1.5 K/uL (1.0-4.3); LYMPH % 10.8 % (20.0-40.0); MEAN CELL VOLUME 91.5 fl (80.0-94.0); MEAN CORPUSCULAR HEMOGLOBIN 31.1 pg (27.0-31.0); MEAN PLATELET VOLUME 9.5 fl (7.2-11.7); MONO # 0.7 K/uL (0.0-0.8); MONO % 4.9 % (0.0-10.0); NEUT # 11.9 K/uL (1.8-7.0); NEUT % 83.6 % (50.0-75.0); NRBC % 0.1 % (0.0-0.0); RBC 5.31 Mil/uL (4.40-5.90); WHITE BLOOD COUNT 14.2 K/uL (4.8-10.8)
[2018-07-07 23:12] LABS: PROTHROMBIN TIME 11.1 Seconds (9.8-13.1)
[2018-07-07 23:15] LABS: PARTIAL THROMBOPLASTIN TIME 29.6 Seconds (25.6-37.1)
[2018-07-07 23:24] LABS: BLOOD UREA NITROGEN 18 mg/dl (9-20); CALCIUM 8.9 mg/dL (8.4-10.2); GFR NON-AFRICAN AMERICAN > 60
[2018-07-08] MEDS ORDERED: Tdap Vaccine 0.5 ml Vial (10-64 yrs) IM ONE (00:15)
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
[2018-07-08] MEDS ORDERED: Sodium Chloride 0.9% 1,000 ML IV STA (00:32)
[2018-07-08 00:33] VITALS: RESP 18
[2018-07-08 02:07] VITALS: BP 125/63; PULSE 86; TEMP 98.6
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
[2018-07-09 01:28] VITALS: O2SAT 96
== END 2018-07-08 01:50 | disposition home or self-care (01) ==
LOC: H.ER 21:28
DX: S00.12XA Contusion of left eyelid and periocular area, initial encounter (principal); S00.03XA Contusion of scalp, initial encounter; T14.8XXA Other injury of unspecified body region, initial encounter; Y04.2XXA Assault by strike against or bumped into by another person, initial encounter
CPT/HCPCS: 70450; 70486; 80048; 85025; 85610; 85730; 90471; 90715; 96374; 96375; 99283; J2270; J2405; J2765; J7030